=== PATIENT | female | born 1935 | race Caucasian/White ===

== ENCOUNTER → 2016-07-14 | Outpatient (REF) | payer MEDICARE, OTHER | LOC: M LAB REF 12:15 | PROVIDERS: ATTEND Otolaryngology | DX: H60.93 Unspecified otitis externa, bilateral (principal); H60.91 Unspecified otitis externa, right ear ==

== ENCOUNTER → 2019-05-09 | Outpatient (REF) | payer MEDICARE, OTHER | LOC: M LAB REF 16:20 | PROVIDERS: ATTEND Otolaryngology | DX: H60.8X1 Other otitis externa, right ear (principal) ==

== ENCOUNTER → 2021-06-12 | Outpatient (CLI) | payer MEDICARE, OTHER | LOC: M LABSMTC 09:59 | PROVIDERS: ATTEND Pediatrics | DX: Z20.822 Contact with and (suspected) exposure to COVID-19 (principal) | CPT/HCPCS: C9803; U0003 ==

== ENCOUNTER → 2022-04-21 | Outpatient (REF) | payer MEDICARE, OTHER | LOC: M LAB REF 16:26 | PROVIDERS: ATTEND Otolaryngology | DX: H73.11 Chronic myringitis, right ear (principal) ==

== ENCOUNTER → 2023-03-16 | Outpatient (REF) | payer MEDICARE, OTHER | LOC: M LAB REF 16:25 | PROVIDERS: ATTEND Nurse Practitioner Family | DX: L03.114 Cellulitis of left upper limb (principal) ==

== ENCOUNTER → 2023-06-17 | Outpatient (CLI) | payer MEDICARE, OTHER ==
[~2023-06-17] MED LIST: ALBU2.5V10; ALBU8.5H; CEFD300C PO; DOXY-443; GABA-1171; METO1TAB32; PRED10TA2 PO; PRED20TA; ZITHTAB PO
== END ==
LOC: M RAD 14:14
PROVIDERS: ATTEND Internal Medicine
DX: J20.9 Acute bronchitis, unspecified (principal); J06.9 Acute upper respiratory infection, unspecified

== ENCOUNTER 2023-06-18 07:24 | Emergency (ER) | payer MEDICARE, OTHER ==
[~2023-06-18] VITALS: Ht 165.1 cm; Wt 67.0 kg
[2023-06-18] MEDS ORDERED: IPRATROPIUM 0.5MG/ALBUTEROL 2.5MG INH SOL UD 3ML (DUONEB) NEB ONE (08:00)
[2023-06-18] MEDS ORDERED: DOXY-443 (08:07)
[2023-06-18] MEDS ORDERED: GABA-1171 (08:07)
[2023-06-18] MEDS ORDERED: ALBU2.5V10 (08:07)
[2023-06-18] MEDS ORDERED: PRED20TA (08:07)
[2023-06-18] MEDS ORDERED: ALBU8.5H (08:07)
[2023-06-18] MEDS ORDERED: METO1TAB32 (08:07)
[2023-06-18] MEDS ORDERED: PRED10TA2 PO (09:20)
[2023-06-18] MEDS ORDERED: CEFD300C PO (09:21)
[2023-06-18] MEDS ORDERED: ZITHTAB PO (09:21)
[2023-06-18 09:45] VITALS: BP 125/60; TEMP 97.4; O2SAT 95
== END 2023-06-18 10:00 | disposition home or self-care (01) ==
LOC: M ED 07:24
DX: J20.9 Acute bronchitis, unspecified (principal); I10 Essential (primary) hypertension; Z88.2 Allergy status to sulfonamides; Z88.0 Allergy status to penicillin; Z88.1 Allergy status to other antibiotic agents

== ENCOUNTER 2023-07-05 06:22 | Inpatient (IN) | payer MEDICARE, OTHER ==
[~2023-07-05] VITALS: Ht 167.6 cm; Wt 59.5 kg
[~2023-07-05 06:22] MED LIST changes: -ALBU2.5V10; +ALBU2.5V10 INH; -ALBU8.5H; +ALBU8.5H INH; -METO1TAB32; +METO1TAB32 PO
[2023-07-05] MEDS ORDERED: IPRATROPIUM 0.5MG/ALBUTEROL 2.5MG INH SOL UD 3ML (DUONEB) NEB ONE (07:20)
[2023-07-05] MEDS ORDERED: methylPREDNISolone 125MG 2ML VIAL IV ONE (07:20)
[2023-07-05] MEDS ORDERED: ALBUTEROL SULFATE 2.5MG/0.5ML INH NEB SOLN INH ONE (07:20)
[2023-07-05 07:57] LABS: BASO # 0.1 10^3/uL (0.0-0.2); BASO % 0.8 % (0.0-1.0); HEMATOCRIT 41.4 % (36.0-47.0); HEMOGLOBIN 13.3 g/dl (12.0-15.5); LYMPH % 12.2 % (24.0-44.0); MEAN CORPUSCULAR HEMOGLOBIN 31.1 pg (27.0-33.0); MEAN CORPUSCULAR HGB CONC 32.1 g/dl (32.0-36.5); MONO # 0.7 10^3/uL (0.0-0.8); MONO % 8.4 % (2.0-8.0); NEUTROPHILS # 5.6 10^3/uL (1.5-8.5); NEUTROPHILS % 66.4 % (36.0-66.0); PLATELET COUNT, AUTOMATED 270 10^3/uL (150-450); RED BLOOD COUNT 4.27 10^6/uL (4.00-5.40); WHITE BLOOD COUNT 8.5 10^3/uL (4.0-10.0)
[2023-07-05 08:12] LABS: ALBUMIN 3.6 G/DL (3.2-5.2); ALKALINE PHOSPHATASE 67 U/L (46-116); ALT/SGPT 22 U/L (7.0-40); AST/SGOT 16 U/L (<34); BILIRUBIN,DIRECT 0.2 MG/DL (<0.4); BILIRUBIN,TOTAL 0.7 MG/DL (0.3-1.2); BLOOD UREA NITROGEN 13 MG/DL (9-23); CALCIUM LEVEL 9.1 MG/DL (8.3-10.6); CARBON DIOXIDE LEVEL 26 MMOL/L (20-31); CHLORIDE LEVEL 107 MMOL/L (98-107); CK-MB VALUE MASS 3.2 NG/ML (<3.6); CPK CREATINE PHOSPHOKINASE 163 U/L (34-145); CREATININE FOR GFR 0.66 MG/DL (0.55-1.30); GLOMERULAR FILTRATION RATE > 60.0 (>32); GLUCOSE, FASTING 111 MG/DL (74-106); MB/CK RELATIVE INDEX 1.96 (< OR =4); SODIUM LEVEL 141 MMOL/L (136-145); TOTAL PROTEIN 6.3 G/DL (5.7-8.2)
[2023-07-05] MEDS ORDERED: ISOVUE-370 76% 100ML VIAL As Ordered ONE (08:23)
[2023-07-05] MEDS ORDERED: DOXYCYCLINE HYCLATE 100MG TABLET PO SCH (09:00)
[2023-07-05 09:48] VITALS: O2SAT 94
[2023-07-05] MEDS ORDERED: IPRATROPIUM 0.5MG/ALBUTEROL 2.5MG INH SOL UD 3ML (DUONEB) NEB PRN (10:35)
[2023-07-05] MEDS ORDERED: MED REC IN PROGRESS XX SCH (10:40)
[2023-07-05] MEDS ORDERED: GABA-282 PO (10:57)
[2023-07-05] MEDS ORDERED: VITALIQ26 XX (10:57)
[2023-07-05] MEDS ORDERED: VITA200048 PO (10:59)
[2023-07-05] MEDS ORDERED: HOME MED LIST COMPLETE! XX SCH (11:05)
[2023-07-05] MEDS ORDERED: AZITHROMYCIN 250MG TABLET PO ONE (11:10)
[2023-07-05] MEDS: CEFDINIR 300 MG CAP (OMNICEF) PO SCH ×2 (11:22→22:26)
[2023-07-05] MEDS: LACTOBACILLUS ACIDOPHILUS CAP (BACID) PO SCH ×3 (11:22→22:26)
[2023-07-05] MEDS: MONTELUKAST 10 MG TAB PO SCH (11:23)
[2023-07-05] MEDS: FLUTICASONE HFA 110MCG 12GM INHALER (FLOVENT) INH SCH ×2 (12:19→20:12)
[2023-07-05] MEDS ORDERED: IPRATROPIUM 0.5MG/ALBUTEROL 2.5MG INH SOL UD 3ML (DUONEB) NEB SCH (14:00)
[2023-07-05 14:45] VITALS: BP 158/68; TEMP 97.5; O2SAT 95
[2023-07-05] MEDS: methylPREDNISolone 40MG 1ML VIAL IV SCH ×2 (15:36→22:27)
[2023-07-05] MEDS: IPRATROPIUM 0.5MG/ALBUTEROL 2.5MG INH SOL UD 3ML (DUONEB) NEB SCH ×3 (16:00→23:35)
[2023-07-05] MEDS ORDERED: SODIUM CHLORIDE HYPERTONIC 3% 4ML NEB SOL INH PRN (16:15)
[2023-07-05] MEDS: SODIUM CHLORIDE HYPERTONIC 3% 4ML NEB SOL INH SCH ×2 (20:14→23:36)
[2023-07-05 21:20] VITALS: BP 157/81; TEMP 98.1; O2SAT 95
[2023-07-05] MEDS: HEPARIN SOD (PORCINE) 5000UNITS/ML 1ML VIAL/SYRINGE SQ SCH (22:27)
[2023-07-05] MEDS: GABAPENTIN 300 MG CAP PO SCH (23:21)
[2023-07-05] MEDS: DOCUSATE SODIUM 100MG CAPSULE PO SCH (23:21)
[2023-07-05] MEDS: ARTIFICIAL TEARS DROPS 15ML BTL (VISINE DRY RELIEF) OU SCH (23:22)
[2023-07-06] MEDS: IPRATROPIUM 0.5MG/ALBUTEROL 2.5MG INH SOL UD 3ML (DUONEB) NEB SCH (03:24)
[2023-07-06] MEDS: methylPREDNISolone 40MG 1ML VIAL IV SCH ×4 (03:54→20:36)
[2023-07-06] MEDS: SODIUM CHLORIDE HYPERTONIC 3% 4ML NEB SOL INH SCH ×4 (04:00→19:55)
[2023-07-06 05:17] VITALS: BP 154/81; TEMP 97.1; O2SAT 91
[2023-07-06 05:20] VITALS: O2SAT 93
[2023-07-06 06:18] LABS: BASO % 0.1 % (0.0-1.0); HEMATOCRIT 42.3 % (36.0-47.0); HEMOGLOBIN 13.8 g/dl (12.0-15.5); LYMPH # 0.3 10^3/uL (1.5-5.0); MEAN CORPUSCULAR HEMOGLOBIN 31.3 pg (27.0-33.0); MEAN CORPUSCULAR HGB CONC 32.6 g/dl (32.0-36.5); MEAN CORPUSCULAR VOLUME 95.9 fl (80.0-96.0); MONO # 0.2 10^3/uL (0.0-0.8); MONO % 2.6 % (2.0-8.0); NEUTROPHILS # 7.6 10^3/uL (1.5-8.5); NEUTROPHILS % 92.8 % (36.0-66.0); PLATELET COUNT, AUTOMATED 270 10^3/uL (150-450); RED BLOOD COUNT 4.41 10^6/uL (4.00-5.40); WHITE BLOOD COUNT 8.2 10^3/uL (4.0-10.0)
[2023-07-06 06:35] LABS: BLOOD UREA NITROGEN 15 MG/DL (9-23); CALCIUM LEVEL 9.2 MG/DL (8.3-10.6); CARBON DIOXIDE LEVEL 24 MMOL/L (20-31); CHLORIDE LEVEL 106 MMOL/L (98-107); GLOMERULAR FILTRATION RATE > 60.0 (>32); GLUCOSE, FASTING 167 MG/DL (74-106); POTASSIUM SERUM 3.9 MMOL/L (3.5-5.1); SODIUM LEVEL 139 MMOL/L (136-145)
[2023-07-06] MEDS: HEPARIN SOD (PORCINE) 5000UNITS/ML 1ML VIAL/SYRINGE SQ SCH ×2 (09:40→20:36)
[2023-07-06] MEDS: CEFDINIR 300 MG CAP (OMNICEF) PO SCH ×2 (09:40→20:36)
[2023-07-06] MEDS: MONTELUKAST 10 MG TAB PO SCH (09:40)
[2023-07-06] MEDS: VITAMIN D 1,000 INTERNATIONAL UNITS TABLET PO SCH (09:41)
[2023-07-06] MEDS: METOPROLOL SUCC *XL* 25MG TAB (TopROL *XL*) PO SCH (09:41)
[2023-07-06] MEDS: AZITHROMYCIN 250MG TABLET PO SCH (09:41)
[2023-07-06] MEDS: LACTOBACILLUS ACIDOPHILUS CAP (BACID) PO SCH ×4 (09:41→20:35)
[2023-07-06] MEDS: ARTIFICIAL TEARS DROPS 15ML BTL (VISINE DRY RELIEF) OU SCH ×4 (09:42→20:37)
[2023-07-06] MEDS: ALBUTEROL SULFATE 2.5MG/0.5ML INH NEB SOLN INH SCH ×2 (10:40→19:54)
[2023-07-06] MEDS: FLUTICASONE HFA 110MCG 12GM INHALER (FLOVENT) INH SCH ×2 (10:43→19:54)
[2023-07-06] MEDS ORDERED: SODIUM CHLORIDE HYPERTONIC 3% 4ML NEB SOL INH PRN (11:00)
[2023-07-06] MEDS: guaiFENesin ER TABLET 600 MG TAB PO SCH ×2 (12:25→20:35)
[2023-07-06 14:00] VITALS: BP 115/55; TEMP 97.9; O2SAT 94
[2023-07-06] MEDS: GABAPENTIN 300 MG CAP PO SCH (20:35)
[2023-07-06] MEDS: DOCUSATE SODIUM 100MG CAPSULE PO SCH (20:35)
[2023-07-06 21:38] VITALS: BP 149/65; TEMP 97.9; O2SAT 93
[2023-07-07] MEDS: methylPREDNISolone 40MG 1ML VIAL IV SCH (03:24)
[2023-07-07 05:51] LABS: BASO % 0.1 % (0.0-1.0); HEMATOCRIT 38.6 % (36.0-47.0); HEMOGLOBIN 12.5 g/dl (12.0-15.5); LYMPH # 0.5 10^3/uL (1.5-5.0); LYMPH % 4.2 % (24.0-44.0); MEAN CORPUSCULAR HEMOGLOBIN 30.9 pg (27.0-33.0); MEAN CORPUSCULAR HGB CONC 32.4 g/dl (32.0-36.5); MEAN CORPUSCULAR VOLUME 95.5 fl (80.0-96.0); MONO # 0.4 10^3/uL (0.0-0.8); NEUTROPHILS # 10.9 10^3/uL (1.5-8.5); NEUTROPHILS % 92.3 % (36.0-66.0); PLATELET COUNT, AUTOMATED 263 10^3/uL (150-450); RED BLOOD COUNT 4.04 10^6/uL (4.00-5.40); WHITE BLOOD COUNT 11.8 10^3/uL (4.0-10.0)
[2023-07-07 06:15] VITALS: BP 114/64; TEMP 97.9; O2SAT 94
[2023-07-07 06:16] LABS: BLOOD UREA NITROGEN 18 MG/DL (9-23); CALCIUM LEVEL 8.6 MG/DL (8.3-10.6); CARBON DIOXIDE LEVEL 24 MMOL/L (20-31); CHLORIDE LEVEL 108 MMOL/L (98-107); CREATININE FOR GFR 0.58 MG/DL (0.55-1.30); GLOMERULAR FILTRATION RATE > 60.0 (>32); GLUCOSE, FASTING 137 MG/DL (74-106); POTASSIUM SERUM 4.5 MMOL/L (3.5-5.1); SODIUM LEVEL 139 MMOL/L (136-145)
[2023-07-07] MEDS: ALBUTEROL SULFATE 2.5MG/0.5ML INH NEB SOLN INH SCH (07:16)
[2023-07-07] MEDS: SODIUM CHLORIDE HYPERTONIC 3% 4ML NEB SOL INH SCH (07:17)
[2023-07-07] MEDS: FLUTICASONE HFA 110MCG 12GM INHALER (FLOVENT) INH SCH (07:17)
[2023-07-07] MEDS ORDERED: predniSONE 20 MG TAB PO SCH (09:00)
[2023-07-07] MEDS: VITAMIN D 1,000 INTERNATIONAL UNITS TABLET PO SCH (09:00)
[2023-07-07] MEDS: LACTOBACILLUS ACIDOPHILUS CAP (BACID) PO SCH (09:00)
[2023-07-07] MEDS: HEPARIN SOD (PORCINE) 5000UNITS/ML 1ML VIAL/SYRINGE SQ SCH (09:00)
[2023-07-07 09:01] VITALS: BP 128/67
[2023-07-07] MEDS: METOPROLOL SUCC *XL* 25MG TAB (TopROL *XL*) PO SCH (09:01)
[2023-07-07] MEDS: CEFDINIR 300 MG CAP (OMNICEF) PO SCH (09:01)
[2023-07-07] MEDS: AZITHROMYCIN 250MG TABLET PO SCH (09:01)
[2023-07-07] MEDS: MONTELUKAST 10 MG TAB PO SCH (09:01)
[2023-07-07] MEDS: guaiFENesin ER TABLET 600 MG TAB PO SCH (09:01)
[2023-07-07] MEDS: ARTIFICIAL TEARS DROPS 15ML BTL (VISINE DRY RELIEF) OU SCH (09:01)
[2023-07-07] MEDS ORDERED: FLUT12AE2 INH (10:43)
[2023-07-07] MEDS ORDERED: MUCI600T31 PO (10:43)
[2023-07-07] MEDS ORDERED: ALBU6.7H6 INH (10:43)
[2023-07-07] MEDS ORDERED: PRED10TA2 PO (10:43)
[2023-07-07] MEDS ORDERED: MONT10TA97 PO (10:43)
[2023-07-07] MEDS ORDERED: AZIT-12 PO (10:43)
[2023-07-07] MEDS ORDERED: ZYRTTAB8 PO (10:48)
== END 2023-07-07 12:10 | disposition home health service (06) | DRG 203 ==
LOC: M ED 06:22 → M ED INP 10:34 → ENRESERV 13:33 → M MSPAV 14:45 → EEVIPCON 16:11 → OBSVTOIN 16:11
PROVIDERS: ADMIT General Practice; ATTEND General Practice
PROC: B246ZZZ Ultrasonography of Right and Left Heart (ICD-10-PCS; principal; 2023-07-07)
DX: J45.909 Unspecified asthma, uncomplicated (principal); Z66 Do not resuscitate; I10 Essential (primary) hypertension; M19.90 Unspecified osteoarthritis, unspecified site; I27.20 Pulmonary hypertension, unspecified; R10.2 Pelvic and perineal pain; Z90.49 Acquired absence of other specified parts of digestive tract; Z90.79 Acquired absence of other genital organ(s); Z79.51 Long term (current) use of inhaled steroids; Z79.899 Other long term (current) drug therapy; Z88.0 Allergy status to penicillin; Z88.2 Allergy status to sulfonamides; Z88.8 Allergy status to other drugs, medicaments and biological substances; Z20.822 Contact with and (suspected) exposure to COVID-19

== ENCOUNTER → 2025-04-09 | Outpatient (CLI) | payer MEDICARE, OTHER ==
[~2025-04-09] MED LIST changes: +ALBU6.7H6 INH; +AZIT-12 PO; +DOXY-441; -DOXY-443; +FLUT12AE2 INH; +GABA-1172 PO; +MONT10TA97 PO; +MUCI600T31 PO; +VITA200048 PO; +VITALIQ26 XX; +ZYRTTAB8 PO
== END ==
LOC: M PLAIMG 13:42
PROVIDERS: ATTEND Otolaryngology
DX: H92.02 Otalgia, left ear (principal)